=== PATIENT | female | born 1980 | race Hispanic/Latino ===

== ENCOUNTER 2017-02-06 14:17 | Emergency (ER) | payer MEDICAID, OTHER ==
[2017-02-06 14:37] VITALS: RESP 20
--- NOTE | 2017-02-06 15:04 | ED PDOC ---
HPI: Headache Time Seen by Provider: 02/06/17 14:41 Chief Complaint (Nursing): Headache Chief Complaint (Provider): Headache History Per: Patient History/Exam Limitations: no limitations Onset/Duration Of Symptoms: Other (month) Additional Complaint(s): Patient is a 36 y/o female with no significant past medical history presenting to the emergency department for a headache ongoing for one month. Reports that the headache occurs every day and is felt throughout her whole head and radiates down to the left side of her neck. When she wakes up in the morning, her head feels better but over the course of the day, the pain returns. Besides the headache which is consistent, she also reports varying and intermittent associated symptoms that include lightheadedness, syncope, blurry vision, palpitations, shortness of breath, and chest pain. Notes taking Tylenol and ibuprofen with minimal relief. Denies any recent increased stress, unanticipated weight loss, cold symptoms, fever, or other complaints. PCP: none provided. Past Medical History Reviewed: Historical Data, Nursing Documentation, Vital Signs Vital Signs: Last Vital Signs Temp 97.4 F L 02/06/17 14:35 Pulse 67 02/06/17 14:35 Resp 20 02/06/17 14:35 BP 117/57 L 02/06/17 14:35 Pulse Ox 100 02/06/17 14:35 - Medical History PMH: No Chronic Diseases, Depression - Surgical History Surgical History: No Surg Hx - Family History Family History: States: Other Other Family History: Cancer - Social History Current smoker - smoking cessation education provided: No Ex-Smoker (has not smoked in the last 12 months): No Alcohol: None Drugs: Denies - Immunization History Hx Tetanus Toxoid Vaccination: No Hx Influenza Vaccination: No Hx Pneumococcal Vaccination: No - Home Medications Home Medications: Ambulatory Orders Medication Instructions Recorded Fluticasone Nasal [Flonase] 1 spray NS DAILY #0 spr 04/21/15 Ondansetron [Zofran Odt] 4 mg PO ASDIR PRN #20 odt 04/21/15 Ondansetron [Zofran] 4 mg PO Q8H PRN #10 tab 05/13/15 Naproxen [Naprosyn] 1 tab PO BID PRN #30 tab 02/06/17 - Allergies Allergies/Adverse Reactions: Allergies Allergy/AdvReac Type Severity Reaction Status Date / Time No Known Allergies Allergy Verified 04/21/15 15:43 Review of Systems ROS Statement: Except As Marked, All Systems Reviewed And Found Negative Constitutional: Negative for: Fever, Weight loss Eyes: Positive for: Vision Change (blurry vision) ENT: Negative for: Nose Discharge, Nose Congestion Cardiovascular: Positive for: Chest Pain, Palpitations, Light Headedness Respiratory: Positive for: Shortness of Breath. Negative for: Cough Neurological: Positive for: Headache, Other (syncope) Physical Exam - Reviewed Nursing Documentation Reviewed: Yes Vital Signs Reviewed: Yes - Physical Exam Appears: Positive for: Non-toxic, In Acute Distress (and tired appearing) Head Exam: Positive for: ATRAUMATIC, NORMOCEPHALIC Skin: Positive for: Warm, Dry Eye Exam: Positive for: EOMI, PERRL ENT: Positive for: Pharynx Is (clear). Negative for: Pharyngeal Erythema, Tonsillar Exudate Cardiovascular/Chest: Positive for: Regular Rate, Rhythm. Negative for: Murmur Respiratory: Positive for: Normal Breath Sounds. Negative for: Respiratory Distress Gastrointestinal/Abdominal: Positive for: Soft. Negative for: Tenderness Back: Positive for: Normal Inspection. Negative for: Decreased ROM Extremity: Positive for: Normal ROM. Negative for: Deformity Lymphatic: Negative for: Adenopathy Neurologic/Psych: Positive for: Alert, tractor trailer technician II-XII (intact), Oriented (x3). Negative for: Motor/Sensory Deficits, Aphasia, Facial Droop - Laboratory Results Result Diagrams: 02/06/17 15:27 02/06/17 15:27 - ECG O2 Sat by Pulse Oximetry: 100 (RA) Pulse Ox Interpretation: Normal Medical Decision Making Medical Decision Making: Time: 14:52 Initial Impression: sub-acute prolonged headache Differential diagnoses include but are not limited to tension headache, electrolyte abnormality, metabolic encephalopathy, brain mass, stress. Initial Plan: Head CT w/o contrast Labs: CMP, Magnesium, Phosphorous, Thyroid Stimulating Hormone, CBC ED Urine Dipstick ED Urine Lactated Ringers 1 L IV Infectious Mononucleosis Stat Reevaluation 15:[address] scan reviewed. Findings noted as follows: FINDINGS: HEMORRHAGE: No intracranial hemorrhage. BRAIN: No mass effect or edema. No atrophy or chronic microvascular ischemic changes. VENTRICLES: Unremarkable. No hydrocephalus. CALVARIUM: Unremarkable. PARANASAL SINUSES: Unremarkable as visualized. No significant inflammatory changes. MASTOID AIR CELLS: Unremarkable as visualized. No inflammatory changes. OTHER FINDINGS: None. IMPRESSION: Normal CT of the Head. No intracranial mass, hemorrhage or evidence of acute infarct. 17:00 Labs reviewed with no clinically significant abnormalities noted. DW pt findings. Advised f/u clinic for further neurologic workup of prolonged headache. Patient still complains of headache. Will give an IV treatment of Toradol, Reglan, and Benadyl. 1730 Pt eager to go home. Stable for dc. Scribe Attestation: Documented by Macy Blankenship, acting as a scribe for Nalini Tavarez MD. Provider Scribe Attestation: All medical record entries made by the Scribe were at my direction and personally dictated by me. I have reviewed the chart and agree that the record accurately reflects my personal performance of the history, physical exam, medical decision making, and the department course for this patient. I have also personally directed, reviewed, and agree with the discharge instructions and disposition. Disposition - Clinical Impression Clinical Impression: Headache, Leukopenia - Disposition Referrals: [facility] [Outside] (FOLLOW UP WITH CLINIC IN 2-3 DAYS FOR FURTHER EVALUATION AND MANAGEMENT.) Disposition Time: 17:30 Condition: STABLE Additional Instructions: PLEASE REST AND DRINK PLENTY OF HYDRATING FLUIDS AND EAT AT LEAST 3 WELL- BALANCED MEALS A DAY FOLLOW UP WITH YOUR DOCTOR OR THE CLINIC IN 2-3 DAYS FOR FURTHER EVALUATION AND MANAGEMENT. RETURN TO ER FOR WORSENING SYMPTOMS. Prescriptions: Naproxen [Naprosyn] 1 tab PO BID PRN #30 tab PRN Reason: Headache Instructions: General Headache (ED) Forms: [facility] ED School/Work Excuse
[2017-02-06 15:40] LABS: EOS % 1.3 % (0.0-4.0); HEMATOCRIT 39.7 % (34.0-47.0); LYMPH # 1.2 K/uL (1.0-4.3); LYMPH % 35.3 % (20.0-40.0); MEAN CELL VOLUME 87.3 fl (81.0-99.0); MEAN CORPUSCULAR HEMOGLOBIN 28.7 pg (27.0-31.0); MEAN CORPUSCULAR HGB CONC 32.9 g/dL (33.0-37.0); MEAN PLATELET VOLUME 7.9 fl (7.2-11.7); MONO # 0.4 K/uL (0.0-0.8); MONO % 10.5 % (0.0-10.0); NEUT # 1.8 K/uL (1.8-7.0); NEUT % 51.9 % (50.0-75.0); NRBC % 0.1 % (0.0-0.0); RED CELL DISTRIBUTION WIDTH 14.3 % (11.5-14.5); WHITE BLOOD COUNT 3.5 K/uL (4.8-10.8)
--- NOTE | 2017-02-06 15:52 | CT ---
PROCEDURE: CT HEAD WITHOUT CONTRAST. HISTORY: headache dizziness COMPARISON: None available. TECHNIQUE: Axial computed tomography images were obtained through the head/brain without intravenous contrast. Radiation dose: Total exam DLP = 745.96 mGy-cm. This CT exam was performed using one or more of the following dose reduction techniques: Automated exposure control, adjustment of the mA and/or kV according to patient size, and/or use of iterative reconstruction technique. FINDINGS: HEMORRHAGE: No intracranial hemorrhage. BRAIN: No mass effect or edema. No atrophy or chronic microvascular ischemic changes. VENTRICLES: Unremarkable. No hydrocephalus. CALVARIUM: Unremarkable. PARANASAL SINUSES: Unremarkable as visualized. No significant inflammatory changes. MASTOID AIR CELLS: Unremarkable as visualized. No inflammatory changes. OTHER FINDINGS: None. IMPRESSION: Normal CT of the Head. No intracranial mass, hemorrhage or evidence of acute infarct.
[2017-02-06] MEDS: Lactated Ringer's 1,000 ML IV STA (15:58)
[2017-02-06 16:09] LABS: ALB/GLOB RATIO 1.1 (1.0-2.1); ALKALINE PHOSPHATASE 47 U/L (38-126); ALT/SGPT 25 U/L (9-52); AST/SGOT 22 U/L (14-36); BILIRUBIN,TOTAL 1.2 mg/dl (0.2-1.3); BLOOD UREA NITROGEN 15 mg/dl (7-17); CALCIUM 9.1 mg/dL (8.4-10.2); CARBON DIOXIDE 27 mmol/L (22-30); CHLORIDE 105 mmol/L (98-107); GFR AFRICAN-AMERICAN > 60; GLUCOSE,RANDOM 80 mg/dL (65-105); MAGNESIUM 1.9 MG/DL (1.6-2.3); PHOSPHOROUS 4.5 mg/dl (2.5-4.5); POTASSIUM 3.8 MMOL/L (3.6-5.0); SODIUM 141 mmol/l (132-148); TOTAL PROTEIN 8.2 G/DL (6.3-8.2)
[2017-02-06 16:38] LABS: THYROID STIMULATING HORMONE 0.67 mIU/ML (0.46-4.68)
[2017-02-06] MEDS ORDERED: DiphenhydrAMINE 50 mg/ml Inj ONE (17:00)
[2017-02-06] MEDS: DiphenhydrAMINE 50 mg/ml Inj IVP STA (17:02)
[2017-02-06 18:39] VITALS: BP 120/70; PULSE 78; TEMP 98; O2SAT 98
== END 2017-02-06 18:47 | disposition home or self-care (01) ==
LOC: H.ER 14:17
DX: R51 Headache (principal); D72.819 Decreased white blood cell count, unspecified; R42 Dizziness and giddiness; Z87.891 Personal history of nicotine dependence
CPT/HCPCS: 70450; 80053; 81025; 82948; 83735; 84100; 84443; 85025; 86308; 96361; 96374; 96375; 99285; J1200; J1885; J2765; J7120